=== PATIENT | male | born 1955 | race African-American/Black ===

== ENCOUNTER 2018-01-22 21:55 | Emergency (ER) | payer MEDICARE, OTHER ==
[~2018-01-22] VITALS: Ht 188 cm; Wt 81.6 kg
== END 2018-01-23 01:09 | disposition expired ==
LOC: EDBD 21:55 → ER 21:55
DX: I46.9 Cardiac arrest, cause unspecified (principal); I10 Essential (primary) hypertension; E11.9 Type 2 diabetes mellitus without complications
CPT/HCPCS: 31500; 92950